=== PATIENT | female | born 1965 | race Caucasian/White ===

== ENCOUNTER → 2022-04-30 | Outpatient (CLI) | payer BC ==
[~2022-04-30] VITALS: Ht 167.6 cm; Wt 126.1 kg
[~2022-04-30] MED LIST: LEVOTHYROXINE50 MCG PO; LEXAPRO10 MG PO; SINGULAIR10 MG PO; ULTRAM50 MG PO
== END ==
LOC: EROP 11:24
DX: U07.1 COVID-19 (principal); Z23 Encounter for immunization
CPT/HCPCS: M0222; Q0222

== ENCOUNTER → 2022-05-10 | Outpatient (CLI) | payer BC | LOC: KOH-I 12:59 | DX: J45.909 Unspecified asthma, uncomplicated (principal); R05.9 Cough, unspecified | CPT/HCPCS: 71046 ==